=== PATIENT | female | born 1950 | race Caucasian/White ===

== ENCOUNTER → 2016-10-14 17:11 | Outpatient (CLI) | payer MEDICARE ==
[2014-11-06 07:49] VITALS: BMI 40.9
[~2016-10-14 17:11] MED LIST: ASPIRIN325 MG; DUONEB 2.5-0.5 M3 ML; FLEXERIL10 MG PO; FLOVENT HFA 11012 GM; HYDROCHLOROTHIA25 MG PO; LEXAPRO20 MG PO; MUCINEX D1 TAB.SR . PO; PERCOCET 10/3251 TA1 PO; PROAIR HFA8.5 GM INH; PROZAC40 MG PO; ROXICODONE5 MG PO; SYNTHROID112 MCG PO; TENORMIN25 MG PO; VENTOLIN HFA18 GM INH; XANAX2 MG PO; [UNRECOGNIZED DRUG - OTHER]
== END | disposition home or self-care (01) ==
LOC: D.MAMMO 16:00
DX: Z12.31 Encounter for screening mammogram for malignant neoplasm of breast (principal)

== ENCOUNTER 2016-12-16 10:12 | Day surgery (SDC) | payer MEDICARE, OTHER ==
[~2016-12-16 10:12] MED LIST changes: +ROXICODONE15 MG PO
[2016-12-16 11:34] LABS: BASOPHILS 0 % (0-2); EOSINOPHILS 3.2 % (0-7); HEMATOCRIT 45.6 % (36.0-48.0); HEMOGLOBIN 15.5 g/dL (12-16); IMMATURE GRANULOCYTES 0.2 % (0-5); LYMPHOCYTES 25.2 % (15-50); MEAN PLATELET VOLUME 9.6 fL (7.4-10.4); MONOCYTES 5.3 % (2-11); NEUTROPHILS 66.1 % (40-80); PLATELET COUNT 150 10x3/uL (130-400); RDW 12.7 % (11.5-14.5); WBC 5.3 10x3/uL (4.8-10.8)
[2016-12-16 11:45] LABS: CALC OSMOLALITY 285 mosm/kg (275-300); CALCIUM 8.8 mg/dL (8.5-10.1); CHLORIDE - SERUM 106 mmol/L (98-107); CREATININE - SERUM 0.5 mg/dL (0.6-1.3); GLUCOSE 105 mg/dL (74-106); POTASSIUM - SERUM 4.2 mmol/L (3.5-5.1); SODIUM 142 mmol/L (136-145); UREA NITROGEN 22 mg/dL (7-18); eGFR NON AFRICAN AMERICAN > 90 mL/min (90-120)
[2016-12-16 12:20] VITALS: BP 126/69; BMI 34.3
--- NOTE | 2016-12-16 17:34 | NUR ---
165--PERCOCET X2 TABS GIVEN PO BEFORE RIDE HOME. PT VOIDS, IV DC'D. SYLVAIN FIGUEROA 1710--DISCHARGE INSTRUCTIONS GIVEN, PT VERBALIZES UNDERSTANDING. PT OFF UNIT VIA WC. SYLVAIN FIGUEORA
--- NOTE | 2016-12-16 21:34 | OP ---
PATIENT NAME: MARISA HOBBS MEDICAL RECORD: [id number] :50 LOCATION:[facility] ADMISSION DATE: SURGEON: REAGAN AGARWAL MD DATE OF OPERATION: 12/16/2016 PREOPERATIVE DIAGNOSES: 1. Recurrent ventral incisional hernia. 2. Hypertension. 3. Diabetes mellitus. 4. Hypothyroidism. 5. COPD. 6. Tobacco dependence syndrome. POSTOPERATIVE DIAGNOSES: 1. Recurrent ventral incisional hernia. 2. Hypertension. 3. Diabetes mellitus. 4. Hypothyroidism. 5. COPD. 6. Tobacco dependence syndrome. PROCEDURE: Open ventral hernia repair. SURGEON: Reagan Agarwal MD REPORT OF PROCEDURE: The patient's abdomen was prepped and draped in sterile fashion. A skin incision was made in the midline overlying the hernia. We came down through the subcutaneous tissues and encountered a fat-containing hernia sac. The fat was firm and appeared to be incarcerated. As we entered the hernia sac, we were able to free up some of this fatty tissue and then we found out that there was a lot of old mesh that was incorporated into this tissue. We eventually did a thorough dissection, was able to get this fatty tissue dissected free, and it was the omentum. We got it completely released from the surrounding tissue and fascia. The patient had overlapping mesh in a couple of different planes from previously having 6 other hernia repairs. The meshes appeared to be attached well in other aspects of the abdomen, but were not attached well overlying the hernia defect. The hernia defect was approximately 4.5 cm to 5 cm in greatest diameter. The fascia on all sides appeared to be viable and strong. A decision was made just to use the indwelling mesh and perform an overlap procedure. There was mesh present on the inferior aspect of the fascia and there was also an overlay layer of mesh over the fascia. We went ahead and placed multiple #0 Prolene sutures into the fascia, incorporating bites of the underlay mesh and reapproximating them in an overlapping fashion. As we did this, it brought the fascia together transversally. Multiple sutures were used to tack the mesh up to the anterior abdominal wall posteriorly. Once I had this in place, then we used the overlay mesh as a flap over top of the midline hernia defect. Multiple #0 Prolene sutures were used to go through the mesh and through the 2 sides of the fascia and then back out through the mesh to reapproximate the edge of the fascia and bring the mesh down over top of it. After we completely reapproximated the fascial edges incorporating this overlay mesh, then we tacked down the inferior aspect of the mesh to the fascia in an overlay fashion. At this point, we had a good sturdy repair. The wound was irrigated out thoroughly with normal saline. Care was taken to make sure there was no sign of any bleeding. At this point, the subcutaneous tissues were reapproximated with interrupted 3-0 Vicryl and the skin was closed with rojas. OPERATIVE REPORT [id number] MARISA HOBBS COMPLICATIONS: None. CONDITION: Stable. ANESTHESIA: General endotracheal. BLOOD LOSS: Minimal. TRANSINT:[id number] Voice Confirmation ID: [id number] DOCUMENT ID: [id number] REAGAN AGARWAL MD at 2134 CC: [id number] DICTATION DATE: 12/16/16 1506 GUIDE EXCURSION: 12/16/16 1631 [facility] 12/16/16 [facility] [address] [place] [address]
== END 2016-12-16 17:10 | disposition home or self-care (01) ==
LOC: D.OPS 10:12 → D.PAN 12:30 → D.OPS 12:30
PROVIDERS: Surgery
DX: K43.2 Incisional hernia without obstruction or gangrene (principal); E11.9 Type 2 diabetes mellitus without complications; E03.9 Hypothyroidism, unspecified; J44.9 Chronic obstructive pulmonary disease, unspecified; F17.200 Nicotine dependence, unspecified, uncomplicated; I10 Essential (primary) hypertension; Z01.812 Encounter for preprocedural laboratory examination

== ENCOUNTER 2017-07-20 10:48 | Emergency (ER) | payer MEDICARE, OTHER ==
[2017-07-20 11:34] LABS: ALBUMIN 3.6 g/dL (3.4-5.0); ALKALINE PHOSPHATASE 67 U/L (46-116); ALT (SGPT) 40 U/L (10-68); CALC OSMOLALITY 283 mosm/kg (275-300); CARBON DIOXIDE 32.8 mmol/L (21.0-32.0); CHLORIDE - SERUM 103 mmol/L (98-107); CREATININE - SERUM 0.5 mg/dL (0.6-1.3); GLUCOSE 114 mg/dL (74-106); POTASSIUM - SERUM 3.9 mmol/L (3.5-5.1); PROTEIN - SERUM 6.8 g/dL (6.4-8.2); SODIUM 141 mmol/L (136-145); UREA NITROGEN 19 mg/dL (7-18); eGFR NON AFRICAN AMERICAN > 90 mL/min (90-120)
[2017-07-20 11:47] LABS: BASOPHILS 0.2 % (0-2); HEMATOCRIT 45.6 % (36.0-48.0); HEMOGLOBIN 15.9 g/dL (12-16); IMMATURE GRANULOCYTES 0.2 % (0-5); LYMPHOCYTES 20.1 % (15-50); MCH 33.7 pg (26.0-34.0); MCHC 34.9 g/dL (31.0-37.0); MCV 96.6 fL (80.0-100.0); MEAN PLATELET VOLUME 9.8 fL (7.4-10.4); MONOCYTES 5.4 % (2-11); NEUTROPHILS 72.1 % (40-80); PLATELET COUNT 169 10x3/uL (130-400); RBC 4.72 10x6/uL (4.00-5.40); WBC 8.5 10x3/uL (4.8-10.8)
[2017-07-20 12:01] LABS: AMYLASE - SERUM 52 U/L (25-115); LIPASE 216 U/L (73-393); TROPONIN-I < 0.017 ng/mL (0.000-0.060)
== END 2017-07-20 14:29 | disposition home or self-care (01) ==
LOC: D.ER 10:48
PROVIDERS: Family Medicine; Physician Assistant
DX: R10.11 Right upper quadrant pain (principal); R11.2 Nausea with vomiting, unspecified; Z87.09 Personal history of other diseases of the respiratory system; Z86.39 Personal history of other endocrine, nutritional and metabolic disease

== ENCOUNTER → 2017-07-25 07:34 | Outpatient (CLI) | payer MEDICARE, OTHER ==
[~2017-07-25 07:34] MED LIST changes: +DILAUDID2 MG PO; +HCTZ25 MG PO; +HYDROCODONE-APA1 TAB PO; +LIORESAL 10 MG10 MG PO; +SUDOGEST120 MG PO
== END | disposition home or self-care (01) ==
LOC: D.NM 07:34
DX: R10.9 Unspecified abdominal pain (principal); R11.0 Nausea

== ENCOUNTER 2017-08-03 06:00 | Day surgery (SDC) | payer MEDICARE, OTHER ==
[2017-08-02 14:27] LABS: BASOPHILS 0.3 % (0-2); HEMATOCRIT 45.4 % (36.0-48.0); HEMOGLOBIN 15.7 g/dL (12-16); IMMATURE GRANULOCYTES 0.2 % (0-5); LYMPHOCYTES 34.9 % (15-50); MCH 33.4 pg (26.0-34.0); MCHC 34.6 g/dL (31.0-37.0); MCV 96.6 fL (80.0-100.0); MEAN PLATELET VOLUME 9.1 fL (7.4-10.4); MONOCYTES 5.1 % (2-11); NEUTROPHILS 54.5 % (40-80); PLATELET COUNT 183 10x3/uL (130-400); RDW 13.2 % (11.5-14.5); WBC 6.4 10x3/uL (4.8-10.8)
[2017-08-02 14:36] LABS: CALC OSMOLALITY 280 mosm/kg (275-300); CALCIUM 9.1 mg/dL (8.5-10.1); CHLORIDE - SERUM 101 mmol/L (98-107); CREATININE - SERUM 0.5 mg/dL (0.6-1.3); GLUCOSE 101 mg/dL (74-106); POTASSIUM - SERUM 4.2 mmol/L (3.5-5.1); SODIUM 139 mmol/L (136-145); UREA NITROGEN 21 mg/dL (7-18); eGFR NON AFRICAN AMERICAN > 90 mL/min (90-120)
[~2017-08-03] VITALS: Ht 157.5 cm; Wt 93.4 kg
--- NOTE | ~2017-08-03 | OP ---
PATIENT NAME: MARISA HOBBS MEDICAL RECORD: [id number] :50 LOCATION:[facility] ADMISSION DATE: SURGEON: REAGAN AGARWAL MD DATE OF OPERATION: 08/03/2017 PREOPERATIVE DIAGNOSES: 1. Biliary dyskinesia. 2. Chronic obstructive pulmonary disease. 3. Asthma. 4. Hypertension. 5. History of peptic ulcer disease. POSTOPERATIVE DIAGNOSES: 1. Biliary dyskinesia. 2. Chronic obstructive pulmonary disease. 3. Asthma. 4. Hypertension. 5. History of peptic ulcer disease. PROCEDURE: Laparoscopic cholecystectomy. SURGEON: Reagan Agarwal MD MANAGER MEDICAL WRITING: Nelly Harris APRN REPORT OF PROCEDURE: The patient's abdomen was prepped and draped in sterile fashion. A cutdown was made on the superior aspect of the umbilicus. Electrocautery was used to dissect through the subcutaneous tissues and fascia and I bluntly entered the abdominal cavity. There were some adhesions to the anterior abdominal wall from previous meshed hernia repair. These were teased down carefully with blunt dissection. A 12-mm Elizabeth port was then inserted and the abdomen was insufflated. Under direct visualization 5-mm trocars were placed in the epigastrium and 2 more 5-mm trocars were placed in right subcostal region. The gallbladder was grasped and elevated. There were no signs of any inflammatory changes. The cystic artery and cystic duct were dissected free and these were clipped proximally and distally and ligated in standard fashion. The gallbladder was taken off the liver bed using electrocautery and placed into the right upper quadrant. Any bleeding from the liver bed was treated with electrocautery. At this point, the ports and insufflation were then removed and the gallbladder was taken out through the umbilicus. The umbilical fascia was closed with interrupted 0 Vicryls times 3. The wounds were then irrigated out with normal saline and infused with 10 mL of 0.25% Marcaine with epinephrine. The skin incisions were all closed with subcutaneous 5-0 Monocryl and dressed appropriately. COMPLICATIONS: None. CONDITION: Stable. ANESTHESIA: General endotracheal and local. BLOOD LOSS: Minimal. TRANSINT:[id number] Voice Confirmation ID: [id number] DOCUMENT ID: [id number] CC: Kristin Downing MD OPERATIVE REPORT [id number] MARTORANA,REAGAN LOBATO MD at 1309 CC: KRISTIN DOWNING MD [id number] DICTATION DATE: 08/03/17 0849 DOWELING MACHINE OPERATOR: 08/03/17 1136 [facility] 08/03/17 [place] [id number] [place] [id number]
[~2017-08-03 06:00] MED LIST changes: -DILAUDID2 MG PO
[2017-08-03 06:50] VITALS: BP 97/56; Ht 157.5 cm; Wt 93.4 kg
[2017-08-03] MEDS ORDERED: DILAUDID2 MG PO (08:46)
== END 2017-08-03 11:25 | disposition home or self-care (01) ==
LOC: D.OPS 06:00 → D.PAN 08:00 → D.OPS 08:00
PROVIDERS: Surgery
DX: K82.8 Other specified diseases of gallbladder (principal); I10 Essential (primary) hypertension; J44.9 Chronic obstructive pulmonary disease, unspecified; F17.200 Nicotine dependence, unspecified, uncomplicated; E03.9 Hypothyroidism, unspecified; E11.9 Type 2 diabetes mellitus without complications; G47.30 Sleep apnea, unspecified; Z01.812 Encounter for preprocedural laboratory examination

== ENCOUNTER → 2018-11-29 14:00 | Outpatient (CLI) | payer MEDICARE, OTHER ==
[2017-08-03 06:50] VITALS: BMI 37.7
[~2018-11-29 14:00] MED LIST changes: +DILAUDID2 MG PO
== END | disposition home or self-care (01) ==
LOC: D.MAMMO 11:15
PROVIDERS: ATTEND Family Medicine
DX: Z12.31 Encounter for screening mammogram for malignant neoplasm of breast (principal)

== ENCOUNTER 2018-12-26 11:30 | Outpatient (CLI) | payer MEDICARE, OTHER ==
[2017-08-03 06:50] VITALS: BMI 37.7
== END 2018-12-26 12:00 | disposition home or self-care (01) ==
LOC: D.MAMMO 11:30
PROVIDERS: ATTEND Family Medicine
DX: R92.8 Other abnormal and inconclusive findings on diagnostic imaging of breast (principal)